=== PATIENT | female | born 1935 | race Caucasian/White ===

== ENCOUNTER 2017-06-03 11:50 | Outpatient (CLI) | payer MEDICARE, OTHER ==
--- NOTE | 2017-06-03 14:26 | Diagnostic Imaging Report ---
BYRON TORRES [facility] [address] [facility] [address] [place], [place]. [address] Report Submission Date: Jun 03, 2017 12:35:16 PM CDT Patient Study Name: MAKAYLA MALCOLM Date: Jun 03, 2017 11:54:23 AM CDT Modality Type: CR Gender: F Description: ABDOMEN : 37 Institution: [facility] Physician: BYRON TORRES Examination: Obstruction series History: No bowel movement Findings: 2 views obtained of the abdomen. No abnormal dilation of the large or small bowel. Air and stool throughout the large bowel: most pronounced within the descending colon and rectosigmoid region.. No suspicious calcification projecting over the renal fossa or the lower pelvic region. Gallbladder calcifications/gallstones. Osseous structures demonstrate degenerative changes and lumbar curvature. Impression: Significant stool within the large bowel: Constipation. No obstruction. Electronically signed on Jun 03, 2017 12:35:16 PM CDT by: Dominick HENDRICKSON
== END 2017-06-03 11:52 ==
LOC: RAD 11:50
PROVIDERS: ATTEND Family Medicine
DX: K59.01 Slow transit constipation (principal)
CPT/HCPCS: 74000

== ENCOUNTER → 2017-06-26 | Outpatient (CLI) | payer MEDICARE, OTHER ==
[2017-06-26 13:54] LABS: BASOPHILS % 0.6 (0.0-1.5); EOSINOPHILS % 2.3 % (0.0-6.8); MEAN CORPUSCULAR HEMOGLOBIN 31.6 pg (28.0-34.0); MEAN CORPUSCULAR VOLUME 97.2 fl (80.0-100.0); MONOCYTES % 7.4 % (0.0-11.0); NEUTROPHILS # 5.2 # k/uL (1.4-7.7)
[2017-06-26 14:19] LABS: eGFR (African) > 60; eGFR (Non-African) > 60
--- NOTE | 2017-06-26 15:14 | Diagnostic Imaging Report ---
[facility] [address] [facility].[address] [address] Report Submission Date: Jun 26, 2017 2:28:42 PM CDT Patient Study Name: MARIJA LENTZ Date: Jun 26, 2017 1:49:38 PM CDT Modality Type: US Gender: F Description: TRANSVAGINAL PELVIS : [birth year] Institution: [facility] Physician ANTON MCCLELLAND - ÁLVARO Transvaginal pelvic ultrasound CLINICAL HISTORY: Lower abdominal pain for 3 days. TECHNIQUE: Real-time sonography of the pelvis is performed in transverse and longitudinal views using endovaginal technique. FINDINGS: The uterus measures 8.1 cm in length by 3.6 cm in AP and 4.0 cm coronal dimension. Endometrium is well-defined and measures 9 mm in thickness. Right ovary measures 2.8 x 2.2 x 2.6 cm in size with a calculated volume of 8.2 mL. Left ovary measures 3.2 x 1.5 x 2.6 cm in size with a calculated volume of 6.6 mL. Ovarian follicles are present bilaterally. Blood flow is confirmed in both ovaries on color flow imaging and Doppler interrogation. There is no free fluid in the pelvis or pelvic mass. There is slight distortion of the endocervical canal although there is no obvious cervical mass or large nabothian cyst. This may be related to isoechoic fibroid. IMPRESSION: Prominent bilateral follicles. Distortion of the endocervical canal likely related to isoechoic fibroid. Electronically signed on Jun 26, 2017 2:28:42 PM CDT by: Paul HENDRICKSON
--- NOTE | 2017-06-26 18:58 | Diagnostic Imaging Report ---
BYRON TORRES [facility] [address] [facility] [address] [address] Report Submission Date: Jun 26, 2017 5:53:14 PM CDT Patient Study Name: MAKAYLA MALCOLM Date: Jun 26, 2017 1:38:36 PM CDT Modality Type: CR Gender: F Description: SPINE : 37 Institution: [facility] Physician: BYRON TORRES Examination: Plain film lumbar spine History: Back discomfort Findings: 4 views of the lumbar spine demonstrates anterior compression of the L1 vertebral body: approximately 40%. Remaining vertebral bodies demonstrate normal height. Listhesis of L4 on L5: approximately 15%. Curvature to the left on the anterior posterior film. Extensive facet degenerative changes. Generalized osteopenia. Impression: Anterior compression L1: approximately 40%. Chronicity indeterminate without comparison lumbar films. Consider obtaining MRI to further evaluate. Lower lumbar degenerative changes and listhesis. Electronically signed on Jun 26, 2017 5:53:14 PM CDT by: Dominick HENDRICKSON
== END ==
LOC: RAD 13:24
PROVIDERS: ATTEND Family Medicine
DX: R53.83 Other fatigue (principal); M54.5 Low back pain
CPT/HCPCS: 36415; 72100; 80053; 84443; 85025

== ENCOUNTER 2017-07-07 14:48 | Outpatient (CLI) | payer MEDICARE, OTHER | END 2017-07-07 14:50 | LOC: LAB 14:48 | PROVIDERS: ATTEND Family Medicine | DX: Z01.818 Encounter for other preprocedural examination (principal) | CPT/HCPCS: 36415; 85610; 85651; 85730 ==

== ENCOUNTER 2017-07-28 09:44 | Day surgery (SDC) | payer MEDICARE, OTHER ==
[~2017-07-28 09:44] MED LIST: LACTATED RINGERS 1,000 ML IV.SOLN IV ONE; PROPOFOL 500 MG/50 ML VIAL IV ONE; SALINE FLUSH 10 ML DISP.SYRIN IVF ONE
--- NOTE | 2017-07-30 10:58 | GI Report ---
REFERRING PHYSICIAN: Dr. Michelle Ramirez DIESEL ENGINEER: Maurice Ching MD PROCEDURE MEDICATION: Propofol as per anesthesia. INDICATIONS: This is an 81-year-old woman and it has been 10 years since her last colonoscopy. She has had increasing constipation. She had an x-ray of the abdomen that showed increasing stool. She does have diverticular disease. PROCEDURE PERFORMED: Colonoscopy. PROCEDURE: An Olympus video colonoscope was advanced through the rectum. She has moderate to severe diverticular disease of the sigmoid and descending colon. No obvious diverticulitis at present. A very atonic redundant colon and it took some maneuvering and nurse compression to finally reach the base of the cecum. On slow withdrawal, the cecum, ascending colon, and transverse colon with an atonic redundant colon and no obvious intraluminal lesions noted. At the descending colon and sigmoid, there was extensive diverticular disease but no obvious intraluminal lesions noted. No diverticulitis at present. The rectum was otherwise normal. Patient tolerated the procedure well. FINDINGS: 1. Moderate to severe diverticular disease of the sigmoid and descending colon. 2. Atonic redundant colon. RECOMMENDATIONS: 1. Would add MiraLAX one-half scoop to 1 scoop daily. 2. Increase fiber in the diet. 3. Follow up with Dr. Ramirez. 4. She may not need a follow-up colonoscopy unless a clinical situation occurs. cc: Dr. Michelle HENDRICKSON
== END 2017-07-28 09:45 ==
LOC: OPSURG 09:44
PROVIDERS: ATTEND Internal Medicine Gastroenterology
DX: K57.30 Diverticulosis of large intestine without perforation or abscess without bleeding (principal); K59.8 Other specified functional intestinal disorders; K59.00 Constipation, unspecified
CPT/HCPCS: J2704; J7120; 45378; S1016

== ENCOUNTER 2018-01-15 09:54 | Outpatient (CLI) | payer MEDICARE, OTHER | END 2018-01-15 09:55 | LOC: RAD 09:54 | PROVIDERS: ATTEND Family Medicine | DX: M81.0 Age-related osteoporosis without current pathological fracture (principal) | CPT/HCPCS: 77080 ==

== ENCOUNTER 2018-02-17 13:27 | Outpatient (CLI) | payer MEDICARE, OTHER ==
[2018-02-17 13:47] LABS: APPEARANCE,URINE Cloudy (CLEAR); COLOR,URINE Yellow (YELLOW); OCCULT BLOOD,URINE 1+ (NEGATIVE); UROBILINOGEN URINE 0.2 Eu (0.2-1.0)
== END 2018-02-17 13:30 ==
LOC: LAB 13:27
PROVIDERS: ATTEND Family Medicine
DX: R30.0 Dysuria (principal)
CPT/HCPCS: 81002; 87086

== ENCOUNTER 2018-05-22 13:19 | Outpatient (CLI) | payer MEDICARE, OTHER | END 2018-05-22 13:25 | LOC: POD 13:19 | PROVIDERS: ATTEND Podiatrist | DX: M72.2 Plantar fascial fibromatosis (principal) | CPT/HCPCS: G0463 ==

== ENCOUNTER 2018-06-01 16:06 | Emergency (ER) | payer MEDICARE, OTHER ==
--- NOTE | 2018-06-01 17:07 | ED Physician Documentation ---
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 no headache or loc or fall - very alert now Onset: just prior to arrival Where: park Timing: still present Context: direct blow. denies: fall Severity: mild - ROS CONST: no problems. denies: recent illness, fever, headache, weakness, chills CVS/RESP: denies: chest pain, shortness of breath, palpitations EYES/ENT: denies: problems with vision GI/: none NEURO/PSYCH: denies: fainting, dizziness, tingling, numbness, anxiety, depression MS/SKIN/LYMPH: other (normal xc lac) - PAST HX Past History: other (htn) - SOCIAL HX Smoking History: non-smoker Alcohol Use: none Drug Use: none - FAMILY HX Family History: No - VITAL SIGNS Vital Signs: Vital Signs Temp Pulse Resp BP Pulse Ox 98.2 F 73 16 170/94 95 06/01/18 16:06 06/01/18 16:06 06/01/18 16:06 06/01/18 16:06 06/01/18 16:06 - REVIEWED ASSESSMENT Nursing Assessment Reviewed: Yes Vitals Reviewed: Yes Procedures Wound Location: head (above lt eyebrow 3cm not full thickness) Wound's Depth, Shape: superficial Wound Explored: cleanse betadine irrigate exp for body-none found Betadine Prep?: Yes (disc w.pt she prefers dermabond) Wound Repaired With: Dermabond Facial Injury Physical Exam - Physical Exam General Appearance: mild distress Head: trauma (3cm lac above ltl eyebrow). No: no obvious injury Neck: non-tender Nexus Criteria: Nexus criteria neg Eye: lids nml, PERRL, EOMI. No: unequal pupils, EOM palsy Neuro/Psych: oriented x3, sensation nml, motor nml, mood/affect nml. No: unsteady gait Respiratory: chest non-tender, breath sounds nml, no resp. distress, heart sounds nml CVS: reg. rate & rhythm, heart sounds nml Abdomen: non-tender Skin: intact, warm Extremities: non-tender, nml ROM Discharge Clincal Impression: 3cm lac lt surpa-orbital laceration Referrals: Michelle Ramirez MD [Primary Care Provider] - 2 Days Condition: Good Decision to Admit: NO Decision Time: 17:25
[2018-06-01 17:32] VITALS: BP 160/79
== END 2018-06-01 16:50 ==
LOC: ED 16:06
DX: S01.81XA Laceration without foreign body of other part of head, initial encounter (principal); Y92.9 Unspecified place or not applicable; Y93.53 Activity, golf; Y99.9 Unspecified external cause status; W22.8XXA Striking against or struck by other objects, initial encounter
CPT/HCPCS: 12013

== ENCOUNTER 2018-12-18 15:08 | Outpatient (CLI) | payer MEDICARE, OTHER ==
--- NOTE | 2018-12-18 15:57 | Diagnostic Imaging Report ---
<p>Your browser does not support iframes.</p> BRIAN VAZQUEZ [facility] [address] [facility].[address] [address] Report Submission Date: Dec 18, 2018 3:54:44 PM MIDDLEWARE ADMINISTRATOR Patient Study Name: MAKAYLA MALCOLM Date: Dec 18, 2018 3:26:11 PM MIDDLEWARE ADMINISTRATOR Modality Type: DX Gender: F Description: SHOULDER 2 VIEWS OR MORE : 37 Institution: [facility] Physician: BRIAN VAZQUEZ Examination: Plain film left shoulder History: PAIN AFTER FELL ON ICE LAST FRIDAY Comparison exams: None provided Findings: 3 views of the left shoulder demonstrates osteopenia. Articular degenerative spurring. No evidence for fracture or dislocation. No soft tissue abnormality Impression: Osteopenia and degenerative changes. No acute appearing cortical abnormality. Electronically signed on Dec 18, 2018 3:54:44 PM MIDDLEWARE ADMINISTRATOR by: Dominick HENDRICKSON
--- NOTE | 2018-12-18 15:57 | Diagnostic Imaging Report ---
BRIAN VAZQUEZ [facility] [address] [facility].[address] [address] Report Submission Date: Dec 18, 2018 3:50:45 PM TURF GROWER Patient Study Name: MAKAYLA MALCOLM Date: Dec 18, 2018 3:18:06 PM TURF GROWER Modality Type: DX Gender: F Description: KNEE 3 VIEWS : 37 Institution: [facility] Physician: BRIAN VAZQUEZ Examination: Plain film right knee History: PAIN IN RT KNEE AFTER FALL ON ICE LAST FRIDAY Findings: 3 views of the right knee demonstrates osteopenia. Articular degenerative spurring. No fracture. No dislocation. No joint effusion. No soft tissue irregularity. Impression: Osteopenia and degenerative changes. No acute appearing osseous abnormality Electronically signed on Dec 18, 2018 3:50:45 PM TURF GROWER by: Dominick HENDRICKSON
== END 2018-12-18 15:11 ==
LOC: RAD 15:08
PROVIDERS: ATTEND Nurse Practitioner Family
DX: M85.812 Other specified disorders of bone density and structure, left shoulder (principal); M85.861 Other specified disorders of bone density and structure, right lower leg; S89.91XA Unspecified injury of right lower leg, initial encounter; S49.92XA Unspecified injury of left shoulder and upper arm, initial encounter; W19.XXXA Unspecified fall, initial encounter
CPT/HCPCS: 73030; 73562

== ENCOUNTER 2019-07-01 14:45 | Outpatient (CLI) | payer MEDICARE, OTHER | END 2019-07-01 15:05 | LOC: LAB 14:45 | PROVIDERS: ATTEND Physical Medicine & Rehabilitation | DX: E83.52 Hypercalcemia (principal) | CPT/HCPCS: 36415; 82310 ==